=== PATIENT | male | born 1995 | race Two or more races ===

== ENCOUNTER 2019-06-27 04:33 | Emergency (ER) | payer BC, OTHER ==
[~2019-06-27] VITALS: Ht 177.8 cm; Wt 88.0 kg
[2019-06-27 05:11] LABS: Hematocrit 47.1 % (41.0-53.0); Hemoglobin 16.3 g/dL (13.5-17.5); Mean Corpuscular Hemoglobin 30.1 pg (28.0-32.0); Mean Corpuscular Hgb Conc. 34.6 g/dL (32.0-36.0); Platelet Count (auto) 257 10^3/uL (140-450); Red Blood Cells 5.41 10^6/uL (4.5-5.90); Red Cell Distribution Width 12.9 % (11.8-14.3); White Blood Cell 12.8 10^3/uL (4.4-10.8)
[2019-06-27 05:19] VITALS: BP 132/96
[2019-06-27 05:25] LABS: Basophils % (manual) 0 (0.0-2.0); Blast Cells 0; Metamyelocytes % 0; Myelocytes % 0; Promyelocytes % 0; Reactive Lymphocytes 0
[2019-06-27 05:34] LABS: Albumin 4.3 g/dL (3.4-5.0); BUN/Creatinine Ratio 10.7; Calcium 8.3 mg/dL (8.5-10.1); Potassium 3.7 mmol/L (3.5-5.1); Salicylate < 1.7 mg/dL (2.8-20.0)
[2019-06-27 05:36] LABS: Bilirubin, Total 0.5 mg/dL (0.2-1.0); Total Protein 8.1 g/dL (6.4-8.2)
[2019-06-27 05:45] LABS: Acetaminophen < 2.0 ug/mL (10-30)
[2019-06-27] MEDS ORDERED: cefTRIAXone 1GM/50ML D5W 50 ML IV ONE ×2 (06:11→06:15)
[2019-06-27 06:15] LABS: Band Neutrophils % (manual) 1; Eosinophils % (manual) 3 (0-7); Lymphocytes % (manual) 63 (10.0-50.0); Monocytes % (manual) 4 (0-12)
[2019-06-27] MEDS ORDERED: TETANUS-DIPTH-ACEL PERTUSSIS 0.5ML SYRG IM ONE (06:15)
== END 2019-06-27 07:05 | disposition home or self-care (01) ==
LOC: ER 04:34
DX: S41.111A Laceration without foreign body of right upper arm, initial encounter (principal); S41.112A Laceration without foreign body of left upper arm, initial encounter; W01.0XXA Fall on same level from slipping, tripping and stumbling without subsequent striking against object, initial encounter; Y93.89 Activity, other specified; Y99.8 Other external cause status; Y92.89 Other specified places as the place of occurrence of the external cause
CPT/HCPCS: 12006; 36415; 73060; 73080; 73130; 80053; 80329; 85007; 85027; 90471; 90715; 96365; 99284; J0696